=== PATIENT | male | born 2000 | race African-American/Black ===

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

== ENCOUNTER 2022-05-23 07:40 | Inpatient (IN) | payer MEDICAID ==
[~2022-05-23] VITALS: Ht 172.7 cm; Wt 71.8 kg
[~2022-05-23 07:40] MED LIST: CLON0.2T; FLUO20CA22; TRAZ1TAB14
[2022-05-23] MEDS ORDERED: NS 1,000 ML IV ONE (07:50)
[2022-05-23 08:07] LABS: VENOUS BASE EXCESS 1.6 (-2.0-2.0); VENOUS HCO3 25.5 MEQ/L (23.0-27.0); VENOUS O2 SATURATION 97.4 % (60.0-80.0); VENOUS PARTIAL PRESSURE CO2 37.7 mmHg (38.0-50.0); VENOUS PARTIAL PRESSURE O2 93.7 mmHg (30.0-50.0); VENOUS PH 7.448 UNITS (7.330-7.430); VENOUS STANDARD HCO3 25.9 MEQ/L; VENOUS TOTAL CO2 26.7 MEQ/L (24.0-28.0)
[2022-05-23 08:13] LABS: BASO % 0.3 % (0.0-1.0); EOS # 0.1 10^3/uL (0.0-0.5); EOS % 1.9 % (0.0-3.0); HEMATOCRIT 37.8 % (42.0-52.0); HEMOGLOBIN 12.8 g/dl (13.5-17.5); LYMPH # 1.7 10^3/uL (1.5-5.0); LYMPH % 29.8 % (24.0-44.0); MEAN CORPUSCULAR HGB CONC 33.9 g/dl (32.0-36.5); MEAN CORPUSCULAR VOLUME 85.5 fl (80.0-96.0); MONO # 0.6 10^3/uL (0.0-0.8); MONO % 10.6 % (2.0-8.0); NEUTROPHILS # 3.3 10^3/uL (1.5-8.5); NEUTROPHILS % 57.2 % (36.0-66.0); PLATELET COUNT, AUTOMATED 275 10^3/uL (150-450); RED BLOOD COUNT 4.42 10^6/uL (4.30-6.10); WHITE BLOOD COUNT 5.8 10^3/uL (4.0-10.0)
[2022-05-23 08:34] LABS: OSMOLALITY SERUM 284 MOSM/KG (275-295)
[2022-05-23 08:58] LABS: ACETAMINOPHEN LEVEL < 2.0 UG/ML (10.0-30.0); ALT/SGPT 34 U/L (12-78); BILIRUBIN,DIRECT 0.2 MG/DL (0.0-0.2); BILIRUBIN,TOTAL 0.8 MG/DL (0.2-1.0); BLOOD UREA NITROGEN 10 MG/DL (7-18); CALCIUM LEVEL 9.7 MG/DL (8.5-10.1); CARBON DIOXIDE LEVEL 26 MEQ/L (21-32); CHLORIDE LEVEL 103 MEQ/L (98-107); ETHYL ALCOHOL (ETHANOL) < 0.003 % (0.000-0.010); GLUCOSE, FASTING 96 MG/DL (70-100); POTASSIUM SERUM 3.6 MEQ/L (3.5-5.1); SALICYLATE LEVEL < 1.7 MG/DL (5.0-30.0); SODIUM LEVEL 136 MEQ/L (136-145); THYROID STIMULATING HORMONE 0.366 uIU/ML (0.463-3.98); TOTAL PROTEIN 7.2 GM/DL (6.4-8.2)
[2022-05-23] MEDS ORDERED: levETIRAcetam INJection 1,000 MG in D5W 100 ML IV ONE (11:25)
[2022-05-23] MEDS ORDERED: HALOPERIDOL 5MG/ML VIAL (J1630 PER 1) IM STA (12:08)
[2022-05-23] MEDS ORDERED: diphenhydrAMINE 50MG/ML VIAL (J1200) IM STA (12:08)
[2022-05-23 12:31] LABS: AMPHETAMINES LEVEL URINE NEGATIVE (NEGATIVE); BARBITURATES URINE NEGATIVE (NEGATIVE); BENZODIAZEPINES URINE POSITIVE (NEGATIVE); CANNABINOIDS URINE POSITIVE (NEGATIVE); COCAINE METABOLITE URINE NEGATIVE (NEGATIVE); METHADONE URINE NEGATIVE (NEGATIVE); OPIATES URINE NEGATIVE (NEGATIVE); PHENCYCLIDINE URINE NEGATIVE (NEGATIVE)
[2022-05-23] MEDS ORDERED: TRAZ-252 PO (13:07)
[2022-05-23] MEDS ORDERED: CLONI1TA PO (13:07)
[2022-05-23] MEDS: NS 1,000 ML IV SCH ×2 (13:07→20:13)
[2022-05-23] MEDS ORDERED: ONDA-83 PO (13:08)
[2022-05-23] MEDS ORDERED: pt comment (13:11)
[2022-05-23] MEDS ORDERED: HOME MED LIST COMPLETE! XX SCH (13:15)
[2022-05-23 14:06] LABS: INR 1.37; PARTIAL THROMBOPLASTIN TIME 33.1 SECONDS (25.9-37.0); PROTHROMBIN TIME 17.3 SECONDS (12.7-14.5)
[2022-05-23] MEDS ORDERED: OLANZapine INTRAMUSCULAR 10MG VIAL IM ONE (14:25)
[2022-05-23 17:49] VITALS: BP 119/70
[2022-05-23 20:00] VITALS: BP 116/72
[2022-05-24] VITALS: BP 86/53
[2022-05-24] MEDS ORDERED: levETIRAcetam INJection 750 MG in D5W 100 ML IV SCH ×2
[2022-05-24] MEDS: NS 1,000 ML IV SCH (03:44)
[2022-05-24 04:00] VITALS: BP 129/75
[2022-05-24 07:44] VITALS: BP 137/85
[2022-05-24 08:47] LABS: HEMATOCRIT 36.2 % (42.0-52.0); HEMOGLOBIN 12.3 g/dl (13.5-17.5); MEAN CORPUSCULAR HEMOGLOBIN 29.1 pg (27.0-33.0); MEAN CORPUSCULAR VOLUME 85.8 fl (80.0-96.0); PLATELET COUNT, AUTOMATED 280 10^3/uL (150-450); RED BLOOD COUNT 4.22 10^6/uL (4.30-6.10); WHITE BLOOD COUNT 7.4 10^3/uL (4.0-10.0)
[2022-05-24] MEDS ORDERED: levETIRAcetam 250MG TABLET (KEPPRA) PO SCH (09:00)
[2022-05-24] MEDS ORDERED: ENOXAPARIN 40MG/0.4ML SYRINGE (J1650 PER 10MG) SC SCH (09:00)
[2022-05-24 09:23] LABS: ALBUMIN 3.7 GM/DL (3.2-5.2); ALT/SGPT 30 U/L (12-78); BILIRUBIN,TOTAL 0.6 MG/DL (0.2-1.0); BLOOD UREA NITROGEN 4 MG/DL (7-18); CALCIUM LEVEL 9.3 MG/DL (8.5-10.1); CARBON DIOXIDE LEVEL 21 MEQ/L (21-32); CHLORIDE LEVEL 108 MEQ/L (98-107); CREATININE FOR GFR 0.94 MG/DL (0.70-1.30); GLUCOSE, FASTING 166 MG/DL (70-100); POTASSIUM SERUM 3.5 MEQ/L (3.5-5.1); SODIUM LEVEL 137 MEQ/L (136-145); TOTAL PROTEIN 6.6 GM/DL (6.4-8.2)
[2022-05-24 11:21] VITALS: BP 124/85
[2022-05-24] MEDS ORDERED: diphenhydrAMINE 50MG/ML VIAL (J1200) IV PRN (11:35)
[2022-05-24] MEDS ORDERED: dexameTHASONE 20MG/5ML VIAL (J1100 PER 1MG) IV ONE (11:35)
[2022-05-24 11:52] VITALS: BP 127/76
[2022-05-24] MEDS ORDERED: LORazepam 2 MG/ML VIAL IV STA (11:53)
== END 2022-05-24 13:40 | disposition left against medical advice (07) | DRG 53 ==
LOC: M ED 07:40 → M ED INP 12:32 → ENRESERV 16:37 → M ICU 17:15
PROVIDERS: ADMIT Internal Medicine; ATTEND Internal Medicine
DX: R56.9 Unspecified convulsions (principal); F11.90 Opioid use, unspecified, uncomplicated; Z76.5 Malingerer [conscious simulation]; F15.90 Other stimulant use, unspecified, uncomplicated; Z11.3 Encounter for screening for infections with a predominantly sexual mode of transmission; F91.1 Conduct disorder, childhood-onset type; Z88.8 Allergy status to other drugs, medicaments and biological substances; Z87.891 Personal history of nicotine dependence; Z79.899 Other long term (current) drug therapy